=== PATIENT | female | born 1990 | race African-American/Black ===

== ENCOUNTER 2018-07-22 12:26 | Emergency (ER) | payer MEDICAID ==
[~2018-07-22] VITALS: Ht 154.9 cm; Wt 70.0 kg
[2018-07-22] MEDS ORDERED: ACETAMINOPHEN 325MG TABLET PO ONE (13:15)
[2018-07-22 15:05] VITALS: BP 111/65
== END 2018-07-22 15:23 | disposition home or self-care (01) ==
LOC: ER 12:26
DX: O99.89 Other specified diseases and conditions complicating pregnancy, childbirth and the puerperium (principal); S83.004A Unspecified dislocation of right patella, initial encounter; Z3A.00 Weeks of gestation of pregnancy not specified; X50.1XXA Overexertion from prolonged static or awkward postures, initial encounter; Y93.01 Activity, walking, marching and hiking; Y92.89 Other specified places as the place of occurrence of the external cause; Y99.8 Other external cause status
CPT/HCPCS: 27560; 99284